=== PATIENT | female | born 1945 | race Two or more races ===

== ENCOUNTER 2023-12-30 11:17 | Emergency (ER) | payer MEDICARE, SELFPAY ==
[2023-12-30] VITALS (12 sets, daily range): BP systolic 134–172; BP diastolic 72–97; PULSE 68–85; TEMP 36.4; O2SAT 74–100; BMI 42.1
--- NOTE | 2023-12-30 11:38 | ECG_ITS ---
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
--- NOTE | 2023-12-30 11:38 | XR_ITS ---
The [address] [address] Patient Name: DANYEL THURSTON MRN: [id number] date: 1945 Sex: F Assigned Patient Location: ED.MAIN Current Patient Location: ED.MAIN Accession/Order Number: [id number] Exam Date: 12/30/2023 11:55 Report Date: 12/30/2023 12:18 At the request of: MOISE ROCKWELL Procedure: XR chest 2V EXAM: XR chest 2V HISTORY: chest pain COMPARISON: 10/08/2020 TECHNIQUE: Upright PA and lateral chest x-ray FINDINGS: The heart is mildly enlarged without overt cardiac decompensation. No acute infiltrate, effusion or pneumothorax is identified. The osseous structures are grossly intact. Study is a bit limited by shallow inspiration. XR/XR chest 2V IMPRESSION: Mild cardiac enlargement without overt cardiac decompensation. A focal infiltrate is not identified. Given the differences in technique and depth of inspiration, the overall appearance of the chest has not changed significantly. Electronically authenticated by: GLENYS GAXIOLA Date: 12/30/2023 12:18
[2023-12-30 11:48] LABS: Basophils Percent Auto 0.5 % (0.2-2.0); Eosinophils Absolute Auto 0.1 10^3/uL (0.0-0.7); Eosinophils Percent Auto 0.7 % (0.9-7.0); Hematocrit 44.6 % (36.0-48.0); Hemoglobin 14.8 g/dL (12.0-16.0); Immature Granulocytes Abs Auto 0.03 10^3/uL (0.00-0.03); Immature Granulocytes Pct Auto 0.4 % (0.0-0.5); Lymphocytes Absolute Auto 1.1 10^3/uL (1.2-3.8); Lymphocytes Percent Auto 13.1 % (20.5-60.0); Mean Corpuscular HGB Conc 33.2 g/dL (29.9-35.2); Mean Corpuscular Hemoglobin 30.6 pg (26.7-34.0); Mean Corpuscular Volume 92.3 fL (81.0-99.0); Mean Platelet Volume 10.2 fL (9.5-13.5); Monocytes Absolute Auto 0.6 10^3/uL (0.3-0.8); Monocytes Percent Auto 6.9 % (1.7-12.0); Neutrophils Absolute Auto 6.4 10^3/uL (1.4-6.5); Neutrophils Percent Auto 78.4 % (43.0-75.0); Platelet Count 222 10^3/uL (150-450); Red Blood Count 4.83 10^6/uL (4.20-5.40); Red Cell Distribution Width 12.7 % (11.0-15.0); White Blood Count 8.1 10^3/uL (4.0-11.0)
--- NOTE | 2023-12-30 11:50 | ED.GENADUL1 ---
HPI HPI - General Adult General Chief complaint: Chest Pain Stated complaint: CHEST PAIN, BREAST Time Seen by Provider: 12/30/23 11:48 Source: patient Mode of arrival: Wheelchair Limitations: no limitations History of Present Illness HPI narrative: Patient is a 78-year-old female who is presenting to the ER with chief complaint of left-sided anterior chest wall pain. Patient has intermittent shortness of breath at rest and with exertion in the past several weeks. Patient's also been having this pain intermittently to left anterior chest wall and left parasternal chest wall in the past several weeks as well. Patient has no abdominal pain nausea or vomiting. Patient has no bowel or bladder changes. Patient states she has intermittent anxiety in the past couple weeks secondary to political ongoing issues. Patient has had echocardiogram in the past, she has never had a stress test. Patient does not believe that she could lay on the table and have a medication that would rev up her heart. No recent traveling. No fall. No heavy lifting, twisting or turning several weeks ago. Patient states she does suffer from intermittent anxiety. No other acute complaints. Patient has a mammogram next month. Patient states her left breast is larger than her right breast. Patient states when she holds up her left breast, he will take the pain away from the left anterior chest where she is having this. Patient is wondering if the weight of her left breast is causing her to have some muscle skeletal pain into the left parasternal area. Patient has no redness, abscess, or any type of infection concern to the left breast. No discharge from her nipples, no color changes from the nipple or areola per patient history. is at bedside during HPI and physical exam. All systems are negative except as noted/marked. All systems reviewed and otherwise negative. Nurses note and vital signs reviewed and patient is not hypoxic. General: The patient appears well and in no apparent distress. Patient is resting comfortably on cart. Patient is not toxic, lethargic, or listless Skin: Warm, dry, no pallor noted. There is no rash noted. No petechiae, purpura. No rash to anterior chest wall. Head: Normocephalic, atraumatic Eye: Normal conjunctiva, no drainage, EOMI. PERRL Ears, Nose, Mouth, and Throat: oral mucosa is moist. Nares patent. Mouth without vesicles. Cardiovascular: Regular Rate and Rhythm, no murmur, gallop, rub patient has reproducible tenderness to palpation to the left parasternal, tenderness to palpation lower area along with her xiphoid process Respiratory: Patient is in no distress, no accessory muscle use, lungs are clear to auscultation, no wheezing, rales or rhonchi Back: Patient does have some reproducible tenderness palpation to the left upper thoracic area, mild pain. With deep palpation to left upper thoracic area, will cause pain to the left anterior area where she is having the pain as well. Otherwise rest of her back is non-tender, no CVA tenderness bilaterally to percussion. No CT LS midline pain GI: Obese, no tenderness to palpation, no masses appreciated. No rebound, guarding, or rigidity noted. No distention Musculoskeletal: Patient has full range of motion of all of the extremities, no motor, sensory, or focal neurological deficits Neurological: A&O x4, normal speech Psychiatric: Cooperative Related Data Home Medications ?Medication ?Instructions ?Recorded ?Confirmed brimonidine 0.2 % eye drops drp ophthalmic (eye) 12/30/23 losartan 100 tab 12/30/23 mg-hydrochlorothiazide 25 mg tablet netarsudil 0.02 %-latanoprost drp ophthalmic (eye) 12/30/23 0.005 % eye drops (Lenoxlatan) omeprazole 40 mg capsule,delayed mg 12/30/23 release potassium chloride 20 mEq meq PO 12/30/23 tablet,extended release(part/cryst) Allergies Allergy/AdvReac Type Severity Reaction Status Date / Time Latex, Natural Rubber Allergy Severe Rash Verified 12/30/23 11:33 peach Allergy Severe Rash Verified 12/30/23 11:37 strawberry Allergy Severe Rash Verified 12/30/23 11:37 Opioid HPI Opioid Management Most Recent Opioid Data: No Data to Display PFSH PFSH Social History Little interest or pleasure in doing things: not at all Feeling down, depressed, or hopeless: not at all Exam Constitutional Vital Signs, click to edit/add: Last Vital Signs Temp 97.5 F L 12/30/23 11:27 Pulse 68 12/30/23 12:50 Resp 22 H 12/30/23 12:50 BP 139/74 12/30/23 12:56 Pulse Ox 100 12/30/23 11:30 O2 Del Method Room Air 12/30/23 11:27 Course Vital Signs Vital signs: Vital Signs Temperature 97.5 F L 12/30/23 11:27 Pulse Rate 85 12/30/23 11:27 Respiratory Rate 20 12/30/23 11:27 Blood Pressure 172/97 H 12/30/23 11:27 Pulse Oximetry 100 12/30/23 11:27 Oxygen Delivery Method Room Air 12/30/23 11:27 Temperature 97.5 F L 12/30/23 11:27 Pulse Rate 68 12/30/23 12:50 Respiratory Rate 22 H 12/30/23 12:50 Blood Pressure 139/74 12/30/23 12:56 Pulse Oximetry 100 12/30/23 11:30 Oxygen Delivery Method Room Air 12/30/23 11:27 Medical Decision Making MDM Narrative Medical decision making narrative: Patient had chest x-ray, EKG, lab work done. Patient been having symptoms intermittently for the past 2 weeks. Patient takes blood pressure medication, cholesterol medication. Patient is 78 years old. Patient heart score is 3, 2 points for age, 1 point for her risk factors. EKG, troponin, and her story did not correlate typically with cardiac in nature. Patient does have a PCP, Dr. Yeung. Patient will follow-up with Dr. Yeung for further testing. Patient asked if she wore a bra that supported her left breast more, that could possibly take her pain away. I told the patient that yes, that could make commonsense, but if it does not work, she still needs a follow-up with her PCP for further outpatient cardiac testing. Patient has an outpatient mammogram scheduled in January. Patient has no other questions at discharge, pill feels safe to go home. Lab Data Lab results reviewed: Yes I reviewed the patient's lab results Labs: Lab Results 12/30/23 Range/Units 11:40 WBC 8.1 (4.0-11.0) 10^3/uL RBC 4.83 (4.20-5.40) 10^6/uL Hgb 14.8 (12.0-16.0) g/dL Hct 44.6 (36.0-48.0) % MCV 92.3 (81.0-99.0) fL MCH 30.6 (26.7-34.0) pg MCHC 33.2 (29.9-35.2) g/dL RDW 12.7 (11.0-15.0) % Plt Count 222 (150-450) 10^3/uL MPV 10.2 (9.5-13.5) fL Neut % (Auto) 78.4 H (43.0-75.0) % Lymph % (Auto) 13.1 L (20.5-60.0) % [place] % (Auto) 6.9 (1.7-12.0) % Eos % (Auto) 0.7 L (0.9-7.0) % Baso % (Auto) 0.5 (0.2-2.0) % Neut # (Auto) 6.4 (1.4-6.5) 10^3/uL Lymph # (Auto) 1.1 L (1.2-3.8) 10^3/uL [place] # (Auto) 0.6 (0.3-0.8) 10^3/uL Eos # (Auto) 0.1 (0.0-0.7) 10^3/uL Baso # (Auto) 0.0 (0.0-0.1) 10^3/uL Abs Immat Gran (auto) 0.03 (0.00-0.03) 10^3/uL Imm/Tot Granulo (auto) 0.4 (0.0-0.5) % Sodium 134 L (136-145) mmol/L Potassium 3.9 (3.5-5.1) mmol/L Chloride 98 (98-107) mmol/L Carbon Dioxide 28.7 (21.0-32.0) mmol/L Anion Gap 11.2 BUN 11.0 (7.0-18.0) mg/dL Creatinine 0.93 (0.55-1.02) mg/dL Est GFR ( Amer) >60 (>=60) Est GFR (Non-Af Amer) 59 L (>=60) BUN/Creatinine Ratio 11.8 Glucose 124 H (74-106) mg/dL Calcium 9.8 (8.5-10.1) mg/dL Total Bilirubin 0.9 (0.2-1.0) mg/dL AST 20 (15-37) U/L ALT 25 (14-59) U/L Alkaline Phosphatase 84 (46-116) U/L Troponin I High Sens 6.5 (4.0-51.3) pg/mL NT-Pro-B Natriuret Pep 162.0 (<=1800.0) pg/mL Total Protein 7.3 (6.4-8.2) g/dL Albumin 3.4 (3.4-5.0) g/dL Globulin 3.9 g/dL Albumin/Globulin Ratio 0.9 ECG Data Attestation: I personally reviewed and interpreted this ECG as follows: (EKG interpretation. Normal sinus rhythm at 78 beats a minute. Normal axis deviation. No acute ST elevation, no acute ectopy. QTc of 378) Discharge Plan Discharge Chief Complaint: Chest Pain Clinical Impression: Atypical chest pain, Costochondritis Patient Disposition: Home, Self-Care Condition: Fair Prescriptions / Home Meds: No Action omeprazole 40 mg capsule,delayed release(DR/EC) losartan-hydrochlorothiazide 100-25 mg tablet potassium chloride 20 mEq tablet,ER particles/crystals PO brimonidine 0.2 % drops OPHTHALMIC (EYE) Rocklatan 0.02-0.005 % drops OPHTHALMIC (EYE) Print Language: Lao Instructions: Chest Pain (ED), Costochondritis (ED), Chest Wall Pain (ED) Additional Instructions: Follow-up with PCP if pain continues; for outpatient cardiac testing as discussed at bedside Purchase a supportive bra as discussed at bedside to possibly help with your left-sided chest wall pain. Alternate Tylenol and either Motrin, Advil, or ibuprofen every 4 hours to help with pain. Maximum dose of Tylenol is 3000 mg a day. Maximum dose of either Motrin, Advil, or ibuprofen is 2400 mg a day. Referrals: VARUN YEUNG [Primary Care Provider] - 1 week
[2023-12-30 12:26] LABS: Alanine Aminotransferase 25 U/L (14-59); Albumin Globulin Ratio 0.9; Albumin Level 3.4 g/dL (3.4-5.0); Alkaline Phosphatase 84 U/L (46-116); Anion Gap 11.2; Aspartate Amino Transferase 20 U/L (15-37); BUN Creatinine Ratio 11.8; Bilirubin Total 0.9 mg/dL (0.2-1.0); Calcium 9.8 mg/dL (8.5-10.1); Carbon Dioxide 28.7 mmol/L (21.0-32.0); Chloride 98 mmol/L (98-107); Estimated GFR (African America >60 (>=60); Estimated GFR (Non-African Ame 59 (>=60); Globulin 3.9 g/dL; Glucose 124 mg/dL (74-106); Potassium 3.9 mmol/L (3.5-5.1); Sodium 134 mmol/L (136-145); Total Protein 7.3 g/dL (6.4-8.2); Troponin I High Sensitivity 6.5 pg/mL (4.0-51.3)
== END 2023-12-30 13:35 | disposition home or self-care (01) ==
PROVIDERS: Emergency Provider Emergency Medicine; PCP Family Medicine
DX: R07.89 Other chest pain (principal); M94.0 Chondrocostal junction syndrome [Tietze]; E66.9 Obesity, unspecified; Z68.41 Body mass index [BMI] 40.0-44.9, adult
CPT/HCPCS: 36415; 71046; 80053; 83880; 84484; 85025; 93005; 99285